=== PATIENT | female | born 1945 | race Two or more races ===

== ENCOUNTER → 2016-03-11 | Outpatient (CLI) | payer MEDICARE, MEDICAID ==
[~2016-03-11] MED LIST: ACET-1079 PO; FOLI1TAB6 PO; HYDR200T36 PO; NIFE30TA76 PO; OMEP20CA5 PO; PENT400T21 PO; PRENTAB28 PO; SULF500T37 PO; TRAM-297 PO; TRAM50TA2 PO
== END | disposition home or self-care (01) ==
LOC: LAB 09:07
DX: R91.1 Solitary pulmonary nodule (principal)
CPT/HCPCS: 36415; 82565; 84520